=== PATIENT | male | born 1970 | race Caucasian/White ===

== ENCOUNTER 2020-10-22 08:16 | Emergency (ER) | payer BC ==
[~2020-10-22] VITALS: Ht 182.9 cm; Wt 74.8 kg
[2020-10-22 08:25] VITALS: BP 115/73
--- NOTE | 2020-10-22 08:34 | NUR ---
BIB SELF C/O SOB, LIGHT HEADACHE , WEAKNESS X 3 DAYS. O2 SAT 100% AT THIS TIME. PMH: SJOGREN'S SYNDROME
--- NOTE | 2020-10-22 08:46 | NUR ---
Pt ambulated to ER bed 12 with a steady gait.
[2020-10-22] MEDS ORDERED: ASPIRIN 325 MG TAB PO ONE (08:50)
--- NOTE | 2020-10-22 09:06 | NUR ---
Note undone in EDM - 10/22/20 at 0912 by [email or web address] 50 Y/O MALE BIBSELF FOR SOB/OSEI X 3 DAYS. AOX4, ABLE TO MAKE ALL NEEDS KNOWN. 100% ON RA. LUNG SOUNDS CLEAR BILAT. RESP EVEN AND UNLABORED. NO COUGH NOTED. RESTING COMFORTABLY, NO SOB OR DISTRESS AT THIS TIME. AFEBRILE PMHX: SJOGREN'S SYNDROME, HF(45%), HTN NKDA
--- NOTE | 2020-10-22 09:08 | NUR ---
RAD AT BEDSIDE
--- NOTE | 2020-10-22 09:13 | NUR ---
EKG PERFORMED AT BEDSIDE. EKG READS SINUS RHYTHM @ 48
--- NOTE | 2020-10-22 09:15 | NUR ---
EMT AT BEDSIDE FOR EKG
--- NOTE | 2020-10-22 09:35 | NUR ---
LAB AT BEDSIDE FOR BLOOD DRAW
--- NOTE | 2020-10-22 09:40 | NUR ---
COVID TEST COMPLETED AND WALKED DOWN TO LAB
[2020-10-22 09:54] LABS: BASOPHILS % (AUTO) 0.6 % (0.0-2.0); EOSINOPHILS # (AUTO) 0.1 K/uL (0-0.4); EOSINOPHILS % (AUTO) 0.9 % (0.0-4.0); HEMOGLOBIN 14.5 g/dL (12.0-18.0); LYMPHOCYTES # (AUTO) 2.4 K/uL (2.0-11.5); LYMPHOCYTES % (AUTO) 38.6 % (20.5-51.1); MEAN CORPUSCULAR HEMOGLOBIN 32 pg (27-31); MEAN CORPUSCULAR HGB CONC 34 g/dL (33-37); MEAN CORPUSCULAR VOLUME 93.7 fL (80-94); MONOCYTES # (AUTO) 0.8 K/uL (0.8-1.0); MONOCYTES % (AUTO) 12.8 % (1.7-9.3); NEUTROPHILS # (AUTO) 2.9 K/uL (1.8-7.7); NEUTROPHILS % (AUTO) 47.1 % (42.2-75.2); PLATELET COUNT (AUTO) 221 K/uL (140-450); RED BLOOD CELL COUNT(AUTO) 4.58 MIL/uL (4.20-6.10); RED CELL DISTRIBUTION WIDTH 13.7 % (11.6-13.7); WHITE BLOOD COUNT (AUTO) 6.1 K/uL (4.8-10.8)
[2020-10-22 10:21] LABS: ALBUMIN 3.8 g/dL (3.4-5.0); ANION GAP 11.8 (8-16); CARBON DIOXIDE 27.7 mmol/L (21-32); CREATININE 1.2 mg/dL (0.6-1.3); POTASSIUM 4.5 mmol/L (3.5-5.1); TOTAL BILIRUBIN 0.6 mg/dL (0.0-1.0)
[2020-10-22 11:40] VITALS: BP 119/72
--- NOTE | 2020-10-22 11:41 | NUR ---
Patient discharged with v/s stable. Written and verbal after care instructions given and explained. Patient verbalized understanding. Ambulatory with steady gait. All questions addressed prior to discharge. Advised to follow up with PMD.
== END 2020-10-22 11:41 | disposition home or self-care (01) ==
LOC: MED 08:16
DX: R06.00 Dyspnea, unspecified (principal); R53.83 Other fatigue; I10 Essential (primary) hypertension
CPT/HCPCS: 71045; 80053; 83880; 84484; 85025; 93005; 99285; U0003